=== PATIENT | male | born 1950 | race Caucasian/White ===

== ENCOUNTER 2017-02-10 01:00 | Emergency (ER) | payer SELFPAY ==
[2017-02-10 01:01] VITALS: BMI 22.6
[2017-02-10 01:13] VITALS: PULSE 88
--- NOTE | 2017-02-10 03:02 | C.PDOC ---
History Of Present Illness Patient is a 66 year old male who presents to the ER with pain and swelling to his right wrist. Patient states and air conditioning unit fell on his wrist 10 days ago. Denies weakness, numbness or any other injury. Time Seen by Provider: 02/10/17 01:14 Chief Complaint (Nursing): Upper Extremity Problem/Injury History Per: Patient History/Exam Limitations: no limitations Onset/Duration Of Symptoms: Hrs Current Symptoms Are (Timing): Still Present Quality: Other (Swelling) Exacerbating Factor(s): Strenuous Use Of Affected Area Recent travel outside of the [place]: No Past Medical History Reviewed: Historical Data, Nursing Documentation, Vital Signs Vital Signs: Last Vital Signs Temp 97.6 F 02/10/17 03:14 Pulse 88 02/10/17 03:14 Resp 20 02/10/17 03:14 BP 149/75 02/10/17 03:14 Pulse Ox 100 02/10/17 04:57 - Medical History PMH: Schizophrenia Surgical History: No Surg Hx - [facility] Procedures PSYCHIAT DRUG THERAP NEC (02/12/14) Family History: States: Unknown Family Hx - Social History Hx Tobacco Use: No Hx Alcohol Use: Yes Hx Substance Use: No - Immunization History Hx Tetanus Toxoid Vaccination: No Hx Influenza Vaccination: No Hx Pneumococcal Vaccination: No Review Of Systems Musculoskeletal: Positive for: Hand Pain (Right wrist), Other (Right wrist swelling) Neurological: Negative for: Weakness, Numbness Physical Exam - Physical Exam Appears: Well, Non-toxic Skin: Normal Color, Warm, Dry Head: Atraumatic, Normacephalic Oral Mucosa: Moist Extremity: Tenderness (Diffusely to right wrist.), No Other (No erythema or warmth to right wrist) Neurological/Psych: Oriented x3, Normal Speech, Normal Cognition ED Course And Treatment O2 Sat by Pulse Oximetry: 100 (Room air) Pulse Ox Interpretation: Normal - Other Rad X-ray of right wrist X-Ray: Interpreted by Me, Viewed By Me Interpretation: No acute abnormalities. Progress Note: Right wrist x-ray ordered. Volar splint applied to right wrist by CP and reviewed by myself. Patient will be discharged home and advised to follow up with ortho. Disposition - Disposition Referrals: Non [facility] Provider, [Primary Care Provider] - Madan Antunez III, MD [Staff Provider] - Disposition: HOME/ ROUTINE Disposition Time: 03:00 Condition: STABLE Additional Instructions: Follow up with PMD and Orthopedist within 1-2 days. Return to Ed if feel worse. Prescriptions: Ibuprofen [Motrin Tab] 600 mg PO Q8 #30 tab Instructions: Wrist Injury (ED) - Clinical Impression Clinical Impression: Wrist contusion - Scribe Statement The provider has reviewed the documentation as recorded by the Scribe Dinesh Medrano All medical record entries made by the Scribe were at my direction and personally dictated by me. I have reviewed the chart and agree that the record accurately reflects my personal performance of the history, physical exam, medical decision making, and the department course for this patient. I have also personally directed, reviewed, and agree with the discharge instructions and disposition.
[2017-02-10 03:18] VITALS: BP 149/75; RESP 20; TEMP 97.6
[2017-02-10 04:53] VITALS: O2SAT 100
--- NOTE | 2017-02-10 10:30 | RAD ---
Right wrist four views History: Injury. Comparison: None available. Findings: Mild productive change at the radial cortex of the distal radius. No evidence of acute displaced fracture or dislocation. Narrowing of the radiocarpal joint space. Lucency through the mid waist of the scaphoid at the radial aspect may represent a vascular groove. Degenerative changes of the 1st carpometacarpal joint space. Impression: Mild productive change at the radial cortex of the distal radius. No evidence of acute displaced fracture or dislocation. Narrowing of the radiocarpal joint space. Lucency through the mid waist of the scaphoid at the radial aspect may represent a vascular groove. Degenerative changes of the 1st carpometacarpal joint space. If pain persists, consider MRI.
== END 2017-02-10 03:34 | disposition home or self-care (01) ==
LOC: SUPCPDRO 01:00 → C.ER 01:00
DX: S60.211A Contusion of right wrist, initial encounter (principal); W20.8XXA Other cause of strike by thrown, projected or falling object, initial encounter